=== PATIENT | female | born 1990 | race Caucasian/White ===

== ENCOUNTER 2019-11-21 12:30 | Emergency (ER) | payer SELFPAY ==
[2019-11-21 13:51] LABS: #Eosinphils 0.1 thou/uL (0.0-0.7); #Lymphocytes 0.8 thou/uL (1.20-3.40); #Monocytes 0.5 thou/uL (0.11-0.59); #Neutrophils 8.1 thou/uL (1.40-6.50); %Basophils 0.4 % (0.0-1.0); %Eosinophils 0.9 % (0.0-10.0); %Lymphocytes 8.4 % (21.0-51.0); %Monocytes 4.7 % (0.0-10.0); %Neutrophils 85.5 % (42.0-75.0); Hemoglobin 12.8 g/dL (12.0-16.0); Mean Corpuscular HGB CONC 34.1 g/dL (32.0-36.0); Mean Corpuscular Hemoglobin 31.8 pg (27.0-31.0); Mean Corpuscular Volume 93.2 fL (78.0-98.0); Mean Platelet Volume 7.9 fL (7.4-10.4); Platelet Count 227 thou/uL (130-400); Red Blood Cell (RBC) Count 4.03 mill/uL (4.20-5.40); White Blood Cell (WBC) Count 9.5 thou/uL (4.8-10.8)
[2019-11-21 14:14] LABS: ALT (SGPT) 11 U/L (8-55); AST (SGOT) 14 U/L (5-34); Acetaminophen Less than 6.0 mcg/mL (10.0-30.0); Albumin 4.3 g/dL (3.5-5.0); Alcohol Less than 10 mg/dL (Less than 10); Alkaline Phosphatase 43 U/L (40-110); Anion Gap 9 mmol/L (10-20); BUN (Urea Nitrogen) 10 mg/dL (7.0-18.7); Bilirubin, Total 0.4 mg/dL (0.2-1.2); Calc. Creatinine Clearance 0 mL/min (70-130); Calcium 8.8 mg/dL (7.8-10.44); Carbon Dioxide 27 mmol/L (22-29); Chloride 106 mmol/L (98-107); Estimated GFR-MDRD 84; Globulin 2.8 g/dL (2.4-3.5); Glucose 94 mg/dL (70-105); Potassium 3.8 mmol/L (3.5-5.1); Protein, Total 7.1 g/dL (6.0-8.3); Salicylate Less than 8.0 mg/dL (15.0-30.0); Sodium 138 mmol/L (136-145)
[2019-11-21 14:22] LABS: BHCG - Serum Negative (NEGATIVE); Pregs Control Background? CLEAR/WHITE (CLR/WHITE); Pregs Control Bar Appear? YES (CONTROL BAR)
[2019-11-21 14:27] LABS: Bilirubin Negative (Negative); Blood, Urine Negative (Negative); Clarity Clear (Clear); Glucose, Urine (Dipstick) Normal (Negative); Ketone, Urine Negative (Negative); Leukocyte Negative Leu/uL (Negative); Nitrite Negative (Negative); Protein, Urine (Dipstick) Negative (Neg-Trace); Specific Gravity, Urine 1.007 (1.002-1.036); Urobilinogen Normal mg/dL (Less than 2)
[2019-11-21 14:29] LABS: Thyroid Stimulating Hormone 1.4858 uIU/mL (0.35-4.94)
[2019-11-21 14:46] LABS: Amphetamine Not Detected (NotDetected); Barbiturates Screen Not Detected (NotDetected); Benzodiazepine Screen Not Detected (NotDetected); Cocaine Metabolite Screen Not Detected (NotDetected); Medtox Control Line Valid? VALID (VALID); Medtox Reader # READER 1; Methadone Not Detected (NotDetected); Methamphetamine Not Detected (NotDetected); Opiate Screen Not Detected (NotDetected); Oxycodone Screen Not Detected (NotDetected); Phencyclidine (PCP) Not Detected (NotDetected); THC/Cannabinoid Screen Not Detected (NotDetected); Tricyclic Screen Not Detected (NotDetected)
== END 2019-11-21 15:25 | disposition home or self-care (01) ==
LOC: ERS 12:30
DX: R00.2 Palpitations (principal); R51 Headache
CPT/HCPCS: 36415; 80053; 80306; 80307; 81003; 84443; 84703; 85025; 87086; 93005

== ENCOUNTER 2019-12-09 17:38 | Emergency (ER) | payer SELFPAY ==
--- NOTE | 2019-12-09 18:58 | RAD ---
Exam: Chest one view HISTORY:Chest pain. Comparison: None. FINDINGS: Cardiac silhouette: Normal Aorta: Unremarkable Pulmonary vessels: Normal Costophrenic angles: Clear LUNGS: No masses or consolidation. Pneumothorax: None Osseous abnormalities: None IMPRESSION: No acute cardiopulmonary process.
== END 2019-12-09 19:58 | disposition home or self-care (01) ==
LOC: ERS 17:38
DX: R07.9 Chest pain, unspecified (principal)
CPT/HCPCS: 71045; 93005; 94760

== ENCOUNTER 2020-01-18 15:44 | Emergency (ER) | payer SELFPAY ==
[2020-01-18 16:37] LABS: #Eosinphils 0.1 thou/uL (0.0-0.7); #Lymphocytes 0.7 thou/uL (1.20-3.40); #Monocytes 0.5 thou/uL (0.11-0.59); #Neutrophils 8.7 thou/uL (1.40-6.50); %Basophils 0.1 % (0.0-1.0); %Eosinophils 1.2 % (0.0-10.0); %Monocytes 5.1 % (0.0-10.0); %Neutrophils 86.6 % (42.0-75.0); Hemoglobin 14.1 g/dL (12.0-16.0); Mean Corpuscular Hemoglobin 31.9 pg (27.0-31.0); Mean Corpuscular Volume 93.8 fL (78.0-98.0); Mean Platelet Volume 8.3 fL (7.4-10.4); Platelet Count 217 thou/uL (130-400); RBC Distribution Width 11.1 % (11.5-14.5); Red Blood Cell (RBC) Count 4.43 mill/uL (4.20-5.40)
[2020-01-18 16:47] LABS: BHCG - Serum Negative (NEGATIVE); Pregs Control Background? CLEAR/WHITE (CLR/WHITE); Pregs Control Bar Appear? YES (CONTROL BAR)
[2020-01-18 16:49] LABS: ALT (SGPT) 8 U/L (8-55); AST (SGOT) 14 U/L (5-34); Albumin 4.7 g/dL (3.5-5.0); Alkaline Phosphatase 48 U/L (40-110); Anion Gap 15 mmol/L (10-20); BUN (Urea Nitrogen) 8 mg/dL (7.0-18.7); Bilirubin, Total 0.6 mg/dL (0.2-1.2); CK (CPK) 34 U/L (29-168); Calc. Creatinine Clearance 0 mL/min (70-130); Calcium 9.1 mg/dL (7.8-10.44); Carbon Dioxide 23 mmol/L (22-29); Chloride 105 mmol/L (98-107); Estimated GFR-MDRD Greater than 90; Glucose 100 mg/dL (70-105); Magnesium 1.8 mg/dL (1.6-2.6); Potassium 3.7 mmol/L (3.5-5.1); Protein, Total 7.7 g/dL (6.0-8.3); Sodium 139 mmol/L (136-145)
[2020-01-18] MEDS ORDERED: Dicyclomine 20 MG TAB ONE (17:37)
[2020-01-18] MEDS ORDERED: Ondansetron PF 4 MG/2 ML Vial ONE (17:37)
[2020-01-18] MEDS ORDERED: Metoprolol Tartrate 5 MG/5 ML VIAL ONE (20:20)
[2020-01-18] MEDS ORDERED: Lidocaine Viscous Sol 2% 15 ml UD Cup ONE (20:22)
[2020-01-18] MEDS ORDERED: Milk Of Magnesia 30 ML UDCUP ONE (20:23)
[2020-01-18] MEDS ORDERED: Mag-Al 1200 mg/1200 mg/30 ML UDCUP ONE (20:24)
--- NOTE | 2020-01-21 14:35 | EKG ---
Test Reason : Blood Pressure : / mmHG Vent. Rate : 114 BPM Atrial Rate : 114 BPM P-R Int : 150 ms QRS Dur : 086 ms QT Int : 320 ms P-R-T Axes : 080 012 048 degrees QTc Int : 441 ms Sinus tachycardia Possible Left atrial enlargement Borderline ECG Confirmed by DREW ENGLAND DO ([id number]), loan expeditor SHENA ALFORD ([id number]) on 01/21/2020 2:34:22 PM Referred By: Confirmed By:DREW ENGLAND DO
== END 2020-01-18 20:35 | disposition home or self-care (01) ==
LOC: ERS 15:44
DX: F43.0 Acute stress reaction (principal); R00.0 Tachycardia, unspecified; Z87.891 Personal history of nicotine dependence; Z79.899 Other long term (current) drug therapy
CPT/HCPCS: 36415; 80053; 82550; 83735; 84703; 85025; 86850; 86900; 86901; 93005; 96361; 96374; 96375; J2405

== ENCOUNTER 2020-01-19 11:04 | Emergency (ER) | payer SELFPAY ==
[2020-01-19 11:39] LABS: Bilirubin Negative (Negative); Blood, Urine Negative (Negative); Clarity Clear (Clear); Glucose, Urine (Dipstick) Normal (Negative); Ketone, Urine 20 mg/dL (Negative); Leukocyte Negative Leu/uL (Negative); Nitrite Negative (Negative); Protein, Urine (Dipstick) Negative (Neg-Trace); Specific Gravity, Urine 1.008 (1.002-1.036); Urobilinogen Normal mg/dL (Less than 2)
[2020-01-19 11:53] LABS: #Lymphocytes 0.6 thou/uL (1.20-3.40); #Monocytes 0.3 thou/uL (0.11-0.59); #Neutrophils 3.6 thou/uL (1.40-6.50); %Basophils 0.2 % (0.0-1.0); %Eosinophils 0.3 % (0.0-10.0); %Lymphocytes 12.9 % (21.0-51.0); %Monocytes 6.7 % (0.0-10.0); Hemoglobin 14.2 g/dL (12.0-16.0); Mean Corpuscular HGB CONC 34.3 g/dL (32.0-36.0); Mean Corpuscular Hemoglobin 32.1 pg (27.0-31.0); Mean Corpuscular Volume 93.7 fL (78.0-98.0); Platelet Count 177 thou/uL (130-400); RBC Distribution Width 11.4 % (11.5-14.5); Red Blood Cell (RBC) Count 4.43 mill/uL (4.20-5.40); White Blood Cell (WBC) Count 4.4 thou/uL (4.8-10.8)
[2020-01-19] MEDS ORDERED: Ondansetron PF 4 MG/2 ML Vial ONE (11:55)
[2020-01-19] MEDS ORDERED: Morphine 4 MG/ML VIAL ONE (11:55)
[2020-01-19] MEDS ORDERED: Iopamidol-370 76% 500 ML 1 ML ONE (11:56)
[2020-01-19 12:13] LABS: ALT (SGPT) 10 U/L (8-55); AST (SGOT) 14 U/L (5-34); Albumin 4.6 g/dL (3.5-5.0); Alkaline Phosphatase 51 U/L (40-110); Anion Gap 13 mmol/L (10-20); BUN (Urea Nitrogen) 6 mg/dL (7.0-18.7); Bilirubin, Total 0.6 mg/dL (0.2-1.2); Calc. Creatinine Clearance 0 mL/min (70-130); Calcium 9.5 mg/dL (7.8-10.44); Carbon Dioxide 25 mmol/L (22-29); Chloride 104 mmol/L (98-107); Estimated GFR-MDRD 87; Globulin 3.1 g/dL (2.4-3.5); Glucose 86 mg/dL (70-105); Potassium 3.6 mmol/L (3.5-5.1); Protein, Total 7.7 g/dL (6.0-8.3); Sodium 138 mmol/L (136-145)
[2020-01-19 12:16] LABS: BHCG - Serum Negative (NEGATIVE); Pregs Control Background? CLEAR/WHITE (CLR/WHITE); Pregs Control Bar Appear? YES (CONTROL BAR)
[2020-01-19 12:29] LABS: CK (CPK) 31 U/L (29-168); Lipase 15 U/L (8-78)
--- NOTE | 2020-01-19 15:10 | CT ---
CT ABDOMEN AND PELVIS WITH ORAL AND IV CONTRAST: History: Abdominal pain, diarrhea Comparison: 12-13-2019 FINDINGS: The lung bases are clear. The liver, spleen, pancreas, adrenal glands, and left kidney are normal. A punctate nonobstructing calculus in the lower pole of the right kidney is again seen. No free air or lymphadenopathy is seen. There is a small amount of free fluid in the pelvis. The uter us and ovaries are present. The small bowel loops are not abnormally dilated. A normally dilated and fluid filled appendix is not seen. IMPRESSION: 1. Punctate nonobstructing right renal calculus. 2. Small amount of fluid in the pelvis. POS: OFF
[2020-01-19] MEDS ORDERED: Glycopyrrolate 0.4 MG/ 2 ML VIAL SLOW IVP SCH (15:15)
[2020-01-19] MEDS ORDERED: Glycopyrrolate 0.2 MG/ML 5 ML SYRINGE SLOW IVP SCH (15:30)
[2020-01-19] MEDS ORDERED: Metoprolol Tartrate 5 MG/5 ML VIAL ONE (15:58)
--- NOTE | 2020-01-21 14:14 | EKG ---
Test Reason : TACHYCARDIA Blood Pressure : / mmHG Vent. Rate : 171 BPM Atrial Rate : 171 BPM P-R Int : 128 ms QRS Dur : 084 ms QT Int : 236 ms P-R-T Axes : 075 -78 068 degrees QTc Int : 398 ms Sinus tachycardia Left anterior fascicular block Nonspecific ST and T wave abnormality Abnormal ECG Confirmed by JUAN NAJERA, MADDIE ([id number]), communications editor SHENA ALFORD ([id number]) on 01/21/2020 2:13:55 PM Referred By: Confirmed By:MADDIE MARTINEZ MD
--- NOTE | 2020-01-21 14:14 | EKG ---
Test Reason : TACHYCARDIA Blood Pressure : / mmHG Vent. Rate : 117 BPM Atrial Rate : 117 BPM P-R Int : 160 ms QRS Dur : 088 ms QT Int : 336 ms P-R-T Axes : 071 014 052 degrees QTc Int : 468 ms Sinus tachycardia Possible Left atrial enlargement Nonspecific T wave abnormality Abnormal ECG Confirmed by JUAN NAJERA, MADDIE ([id number]), editor map SHENA ALFORD ([id number]) on 01/21/2020 2:13:56 PM Referred By: Confirmed By:MADDIE MARTINEZ MD
== END 2020-01-19 17:35 | disposition home or self-care (01) ==
LOC: ERS 11:04
DX: R10.84 Generalized abdominal pain (principal); R19.7 Diarrhea, unspecified; I47.1 Supraventricular tachycardia; Z87.891 Personal history of nicotine dependence
CPT/HCPCS: 36415; 74177; 80053; 81003; 82550; 83605; 83690; 84703; 85025; 93005; 94760; 96361; 96374; 96375; J2270; J2405; Q9967